=== PATIENT | male | born 1960 | race African-American/Black ===

== ENCOUNTER 2017-03-30 13:43 | Emergency (ER) | payer OTHER, SELFPAY ==
[2017-03-30 14:51] LABS: #Basophils 0.1 thou/uL (0.0-0.2); #Eosinphils 0.1 thou/uL (0.0-0.7); #Lymphocytes 2.8 thou/uL (1.20-3.40); #Monocytes 0.9 thou/uL (0.11-0.59); #Neutrophils 3.9 thou/uL (1.40-6.50); %Basophils 0.6 % (0.0-1.0); %Eosinophils 1.7 % (0.0-10.0); %Lymphocytes 36.1 % (21.0-51.0); %Monocytes 11.6 % (0.0-10.0); %Neutrophils 49.9 % (42.0-75.0); Hemoglobin 14.7 g/dL (14.0-18.0); Mean Corpuscular HGB CONC 31.4 g/dL (32.0-36.0); Mean Corpuscular Hemoglobin 31.2 pg (27.0-31.0); Mean Corpuscular Volume 99.2 fl (80.0-94.0); Mean Platelet Volume 6.9 fL (7.4-10.4); Platelet Count 196 thou/uL (130-400); RBC Distribution Width 12.9 % (11.5-14.5); Red Blood Cell (RBC) Count 4.72 mill/uL (4.70-6.10); White Blood Cell (WBC) Count 7.8 thou/uL (4.8-10.8)
[2017-03-30 14:58] LABS: Anion Gap 14 mmol/L (10-20); BUN (Urea Nitrogen) 10 mg/dL (8.4-25.7); Calc. Creatinine Clearance 0 mL/min (70-130); Calcium 10.2 mg/dL (7.8-10.44); Carbon Dioxide 24 mmol/L (22-29); Chloride 106 mmol/L (98-107); Estimated GFR-MDRD Greater than 90; Glucose 82 mg/dL (70-105); Potassium 4.2 mmol/L (3.5-5.1); Sodium 140 mmol/L (136-145)
[2017-03-30] MEDS ORDERED: cefTRIAXone\\ROCEPHIN 250 MG VIAL ONE (15:50)
[2017-03-30] MEDS ORDERED: Lidocaine 1% PF 5 ML VIAL ONE (15:51)
[2017-03-30 15:57] LABS: Bilirubin Negative (Negative); Blood, Urine Negative (Negative); Clarity CLEAR (Clear); Glucose, Urine (Dipstick) Negative (Negative); Leukocyte Negative (Negative); Nitrite Negative (Negative); Protein, Urine (Dipstick) Negative (Neg-Trace); pH, Urine 6.5 (5.0-9.0)
[2017-03-30] MEDS ORDERED: Ibuprofen 800 MG TAB ONE (16:08)
--- NOTE | 2017-03-30 16:12 | ULT ---
SCROTAL SONOGRAM WITH DUPLEX EVALUATION: HISTORY: Right scrotal pain and swelling. FINDINGS: The right testicle is 3.9 cm in length and the left is 4.7 cm. Each has a normal sonographic appeara nce and demonstrates good color and spectral Doppler flow. There is minimal fluid within the right s tin of the scrotum. Blood flow at the enlarged right epididymal tail is increased. There is a very small amount of left scrotal fluid. IMPRESSION: 1. No evidence of testicular mass or torsion. 2. Right epididymitis. 3. Small bilateral hydroceles. POS: [facility]
== END 2017-03-30 16:45 | disposition home or self-care (01) ==
LOC: ERS 13:43
DX: N45.1 Epididymitis (principal); Z87.891 Personal history of nicotine dependence
CPT/HCPCS: 36415; 76870; 80048; 81003; 85025; 93976; 96372; J0696; J2001

== ENCOUNTER 2023-01-09 11:06 | Inpatient (IN) | payer OTHER, SELFPAY ==
[2023-01-09 12:34] LABS: #Basophils 0.1 thou/uL (0.0-0.2); #Eosinphils 0.2 thou/uL (0.0-0.7); #Monocytes 0.7 thou/uL (0.11-0.59); #Neutrophils 8.8 thou/uL (1.40-6.50); %Basophils 0.5 % (0.0-1.0); %Eosinophils 1.5 % (0.0-10.0); %Lymphocytes 20.8 % (21.0-51.0); %Monocytes 5.7 % (0.0-10.0); %Neutrophils 69.2 % (42.0-75.0); Hematocrit 32.2 % (42.0-52.0); Hemoglobin 10.4 g/dL (14.0-18.0); Mean Corpuscular HGB CONC 32.3 g/dL (32.0-36.0); Mean Corpuscular Hemoglobin 30.5 pg (27.0-31.0); Mean Corpuscular Volume 94.4 fl (78.0-98.0); Mean Platelet Volume 8.5 fL (7.4-10.4); Platelet Count 530 10x3/uL (130-400); RBC Distribution Width 14.4 % (11.5-14.5); Red Blood Cell (RBC) Count 3.41 mill/uL (4.70-6.10); White Blood Cell (WBC) Count 12.7 10x3/uL (4.8-10.8)
[2023-01-09] MEDS ORDERED: Morphine 4 MG/ML VIAL ONE (12:50)
[2023-01-09] MEDS ORDERED: Ondansetron PF 4 MG/2 ML Vial ONE (12:50)
[2023-01-09 13:05] LABS: ALT (SGPT) 133 U/L (8-55); AST (SGOT) 47 U/L (5-34); Albumin 3.7 g/dL (3.4-4.8); Alkaline Phosphatase 136 U/L (40-110); Anion Gap 16 mmol/L (10-20); BUN (Urea Nitrogen) 10 mg/dL (8.4-25.7); Bilirubin, Total 0.2 mg/dL (0.2-1.2); Calc. Creatinine Clearance 0 mL/min (70-130); Calcium 10.3 mg/dL (7.8-10.44); Carbon Dioxide 24 mmol/L (23-31); Chloride 100 mmol/L (98-107); Estimated GFR 102; Globulin 5.1 g/dL (2.4-3.5); Glucose 90 mg/dL (80-115); Potassium 4.1 mmol/L (3.5-5.1); Protein, Total 8.8 g/dL (5.8-8.1); Sodium 136 mmol/L (136-145)
[2023-01-09] MEDS ORDERED: Morphine 2 MG/ML VIAL SLOW IVP PRN (13:13)
[2023-01-09] MEDS ORDERED: Ondansetron ODT 4 MG TAB PO PRN ×2 (13:13→14:00)
[2023-01-09] MEDS ORDERED: traMADol HCl 50 MG TAB PO PRN ×2 (13:13→22:45)
[2023-01-09] MEDS ORDERED: hydrALAZINE 20 MG/ML VIAL SLOW IVP PRN ×2 (13:13→14:00)
[2023-01-09] MEDS ORDERED: TETANUS, DIPHTHERIA TOX,ADULT (TDVAX) 0.5 ML VIAL IM ONE ×2 (13:13)
[2023-01-09] MEDS ORDERED: Ipratropium/Albuterol 3 ML NEB NEB PRN ×2 (13:13→14:00)
[2023-01-09] MEDS ORDERED: Sodium Chloride 0.9% 1,000 ML IV SCH (13:15)
[2023-01-09] MEDS ORDERED: Acetaminophen 325 MG TAB PO SCH (13:15)
[2023-01-09] MEDS ORDERED: PROPOFOL 200 MG/20 ML VIAL ONE (14:02)
[2023-01-09] MEDS ORDERED: Metoclopramide HCl 10 MG/2 ML VIAL ONE (14:02)
[2023-01-09] MEDS ORDERED: Succinylcholine 200 MG/10 ml SYRINGE FS ONE (14:02)
[2023-01-09] MEDS ORDERED: fentaNYL 50 mcg/mL 1 mL Vial ONE ×2 (15:15→15:30)
[2023-01-09] MEDS ORDERED: hydrALAZINE 20 MG/ML VIAL ONE (15:34)
[2023-01-09 16:21] VITALS: BMI 22.1
[2023-01-09] MEDS ORDERED: [UNRECOGNIZED DRUG - REMARK] IVPB PRN (16:39)
[2023-01-09] MEDS: Piperacillin/Tazobactam 3.375 GM in Sodium Chloride 0.9% 100 ML IVPB SCH (16:46)
[2023-01-09] MEDS: Morphine 2 MG/ML VIAL SLOW IVP PRN ×2 (16:46→21:33)
[2023-01-09] MEDS: Acetaminophen 325 MG TAB PO SCH ×2 (16:46→23:02)
[2023-01-09] MEDS: traMADol HCl 50 MG TAB PO PRN ×2 (16:47→22:11)
[2023-01-09] MEDS: Sodium Chloride 0.9% 1,000 ML IV SCH (16:47)
[2023-01-09] MEDS: VANCOMYCIN 1.25 GM/250 ML BAG 1.25 GM in Premix Bag 1 BAG IVPB SCH (18:44)
[2023-01-09] MEDS: Famotidine 20 MG TAB PO SCH (20:59)
[2023-01-09] MEDS ORDERED: Famotidine 20 MG TAB PO SCH (21:00)
[2023-01-09] MEDS: traMADol HCl 50 MG TAB PO SCH (23:03)
[2023-01-09] MEDS: Ketorolac Tromethamine 30 MG/ML VIAL IVP SCH (23:04)
[2023-01-10] MEDS: Sodium Chloride 0.9% 1,000 ML IV SCH ×4 (00:12→22:33)
[2023-01-10] MEDS: Piperacillin/Tazobactam 3.375 GM in Sodium Chloride 0.9% 100 ML IVPB SCH ×3 (00:13→17:19)
[2023-01-10] MEDS: Acetaminophen 325 MG TAB PO SCH ×4 (05:05→23:25)
[2023-01-10] MEDS: traMADol HCl 50 MG TAB PO SCH ×4 (05:05→23:24)
[2023-01-10] MEDS: Ketorolac Tromethamine 30 MG/ML VIAL IVP SCH ×4 (05:06→23:26)
[2023-01-10] MEDS: VANCOMYCIN 1.25 GM/250 ML BAG 1.25 GM in Premix Bag 1 BAG IVPB SCH ×2 (05:08→19:59)
[2023-01-10 05:41] LABS: #Basophils 0.1 thou/uL (0.0-0.2); #Eosinphils 0.3 thou/uL (0.0-0.7); #Monocytes 0.9 thou/uL (0.11-0.59); #Neutrophils 8.8 thou/uL (1.40-6.50); %Basophils 0.5 % (0.0-1.0); %Eosinophils 2.2 % (0.0-10.0); %Lymphocytes 19.1 % (21.0-51.0); %Monocytes 6.9 % (0.0-10.0); %Neutrophils 68.8 % (42.0-75.0); Hematocrit 31.3 % (42.0-52.0); Hemoglobin 10.2 g/dL (14.0-18.0); Mean Corpuscular HGB CONC 32.6 g/dL (32.0-36.0); Mean Corpuscular Volume 92.1 fl (78.0-98.0); Mean Platelet Volume 8.1 fL (7.4-10.4); Platelet Count 529 10x3/uL (130-400); RBC Distribution Width 14.4 % (11.5-14.5); White Blood Cell (WBC) Count 12.8 10x3/uL (4.8-10.8)
[2023-01-10 06:19] LABS: Anion Gap 14 mmol/L (10-20); BUN (Urea Nitrogen) 11 mg/dL (8.4-25.7); Calc. Creatinine Clearance 84 mL/min (70-130); Calcium 9.5 mg/dL (7.8-10.44); Carbon Dioxide 24 mmol/L (23-31); Chloride 101 mmol/L (98-107); Estimated GFR 99; Glucose 96 mg/dL (80-115); Sodium 135 mmol/L (136-145)
[2023-01-10] MEDS: Famotidine 20 MG TAB PO SCH ×2 (09:57→21:39)
[2023-01-10 18:09] LABS: Vancomycin, Trough 11.6 ug/mL
[2023-01-10] MEDS: Vancomycin 1 GM in Premix Bag 1 BAG IVPB SCH (22:32)
[2023-01-10] MEDS: Benzocaine/Menthol 1 LOZ LOZ PO PRN (23:27)
[2023-01-11] MEDS: Piperacillin/Tazobactam 3.375 GM in Sodium Chloride 0.9% 100 ML IVPB SCH ×4 (01:33→23:43)
[2023-01-11] MEDS: Morphine 2 MG/ML VIAL SLOW IVP PRN ×2 (04:12→11:05)
[2023-01-11] MEDS: Benzocaine/Menthol 1 LOZ LOZ PO PRN (04:15)
[2023-01-11] MEDS: traMADol HCl 50 MG TAB PO SCH ×4 (05:45→23:39)
[2023-01-11] MEDS: Ketorolac Tromethamine 30 MG/ML VIAL IVP SCH ×4 (05:45→23:40)
[2023-01-11] MEDS: Acetaminophen 325 MG TAB PO SCH ×4 (05:45→23:40)
[2023-01-11] MEDS: Famotidine 20 MG TAB PO SCH ×2 (08:44→22:06)
[2023-01-11] MEDS: Vancomycin 1 GM in Premix Bag 1 BAG IVPB SCH ×2 (08:44→22:07)
[2023-01-11] MEDS: Sodium Chloride 0.9% 1,000 ML IV SCH (13:24)
[2023-01-12] MEDS: Acetaminophen 325 MG TAB PO SCH ×4 (05:48→23:36)
[2023-01-12] MEDS: traMADol HCl 50 MG TAB PO SCH ×4 (05:49→23:38)
[2023-01-12] MEDS: Ketorolac Tromethamine 30 MG/ML VIAL IVP SCH ×4 (05:50→23:37)
[2023-01-12 07:19] LABS: #Basophils 0.1 thou/uL (0.0-0.2); #Eosinphils 0.4 thou/uL (0.0-0.7); #Monocytes 0.9 thou/uL (0.11-0.59); #Neutrophils 6.8 thou/uL (1.40-6.50); %Basophils 0.6 % (0.0-1.0); %Eosinophils 4.3 % (0.0-10.0); %Lymphocytes 18.1 % (21.0-51.0); %Monocytes 8.3 % (0.0-10.0); %Neutrophils 66.4 % (42.0-75.0); Hemoglobin 9.3 g/dL (14.0-18.0); Mean Corpuscular HGB CONC 32.1 g/dL (32.0-36.0); Mean Corpuscular Hemoglobin 30.5 pg (27.0-31.0); Mean Corpuscular Volume 95.1 fl (78.0-98.0); Mean Platelet Volume 8.3 fL (7.4-10.4); Platelet Count 486 10x3/uL (130-400); RBC Distribution Width 14.8 % (11.5-14.5); Red Blood Cell (RBC) Count 3.05 mill/uL (4.70-6.10); White Blood Cell (WBC) Count 10.3 10x3/uL (4.8-10.8)
[2023-01-12 07:51] LABS: Vancomycin, Trough 14.4 ug/mL
[2023-01-12 07:56] LABS: ALT (SGPT) 62 U/L (8-55); AST (SGOT) 23 U/L (5-34); Albumin 3.4 g/dL (3.4-4.8); Alkaline Phosphatase 110 U/L (40-110); Anion Gap 14 mmol/L (10-20); BUN (Urea Nitrogen) 17 mg/dL (8.4-25.7); Bilirubin, Total Less than 0.2 mg/dL (0.2-1.2); Calc. Creatinine Clearance 94 mL/min (70-130); Calcium 9.4 mg/dL (7.8-10.44); Carbon Dioxide 24 mmol/L (23-31); Chloride 102 mmol/L (98-107); Estimated GFR 103; Globulin 3.8 g/dL (2.4-3.5); Glucose 94 mg/dL (80-115); Potassium 4.3 mmol/L (3.5-5.1); Protein, Total 7.2 g/dL (5.8-8.1); Sodium 136 mmol/L (136-145)
[2023-01-12] MEDS: Piperacillin/Tazobactam 3.375 GM in Sodium Chloride 0.9% 100 ML IVPB SCH ×2 (09:28→18:26)
[2023-01-12] MEDS: VANCOMYCIN 1.25 GM/250 ML BAG 1.25 GM in Premix Bag 1 BAG IVPB SCH ×2 (09:28→20:35)
[2023-01-12] MEDS: Famotidine 20 MG TAB PO SCH ×2 (09:29→20:35)
[2023-01-12] MEDS: Vancomycin 1 GM in Premix Bag 1 BAG IVPB SCH (19:33)
[2023-01-13] MEDS: Piperacillin/Tazobactam 3.375 GM in Sodium Chloride 0.9% 100 ML IVPB SCH ×3 (02:36→17:21)
[2023-01-13] MEDS: Acetaminophen 325 MG TAB PO SCH ×3 (05:53→17:20)
[2023-01-13] MEDS: traMADol HCl 50 MG TAB PO SCH ×3 (05:53→17:20)
[2023-01-13] MEDS: Ketorolac Tromethamine 30 MG/ML VIAL IVP SCH ×3 (05:54→17:19)
[2023-01-13] MEDS: Famotidine 20 MG TAB PO SCH ×2 (09:02→20:15)
[2023-01-13] MEDS: VANCOMYCIN 1.25 GM/250 ML BAG 1.25 GM in Premix Bag 1 BAG IVPB SCH ×2 (09:02→20:16)
[2023-01-13] MEDS ORDERED: Cyclobenzaprine 10 MG TAB PO PRN (09:42)
[2023-01-13] MEDS: Morphine 2 MG/ML VIAL SLOW IVP PRN (09:44)
[2023-01-13 20:46] LABS: Vancomycin, Trough 15.9 ug/mL
[2023-01-14] MEDS: Ketorolac Tromethamine 30 MG/ML VIAL IVP SCH ×5 (00:01→23:59)
[2023-01-14] MEDS: Piperacillin/Tazobactam 3.375 GM in Sodium Chloride 0.9% 100 ML IVPB SCH (00:02)
[2023-01-14] MEDS: Acetaminophen 325 MG TAB PO SCH ×4 (06:06→17:08)
[2023-01-14] MEDS: traMADol HCl 50 MG TAB PO SCH ×4 (06:07→17:08)
[2023-01-14] MEDS: Linezolid 600 MG TAB PO SCH ×2 (09:21→21:12)
[2023-01-14] MEDS: Famotidine 20 MG TAB PO SCH ×2 (09:21→21:12)
[2023-01-14] MEDS: Lisinopril 20 MG TAB PO SCH (09:21)
[2023-01-14] MEDS: Morphine 2 MG/ML VIAL SLOW IVP PRN (09:32)
[2023-01-14] MEDS: Ciprofloxacin 500 MG TAB PO SCH (21:12)
[2023-01-15] MEDS: traMADol HCl 50 MG TAB PO SCH ×4 (06:50→17:48)
[2023-01-15] MEDS: Ciprofloxacin 500 MG TAB PO SCH ×2 (06:51→21:14)
[2023-01-15] MEDS: Acetaminophen 325 MG TAB PO SCH ×4 (06:51→17:47)
[2023-01-15] MEDS: Famotidine 20 MG TAB PO SCH ×2 (09:53→21:14)
[2023-01-15] MEDS: Linezolid 600 MG TAB PO SCH ×2 (09:53→21:14)
[2023-01-15] MEDS: Lisinopril 20 MG TAB PO SCH (09:53)
[2023-01-16] MEDS: Acetaminophen 325 MG TAB PO SCH ×5 (00:42→23:26)
[2023-01-16] MEDS: traMADol HCl 50 MG TAB PO SCH ×5 (00:42→23:27)
[2023-01-16] MEDS: Ciprofloxacin 500 MG TAB PO SCH ×2 (05:33→20:52)
[2023-01-16] MEDS: Famotidine 20 MG TAB PO SCH ×2 (10:02→20:52)
[2023-01-16] MEDS: Linezolid 600 MG TAB PO SCH ×2 (10:03→20:52)
[2023-01-16] MEDS: Lisinopril 20 MG TAB PO SCH (10:03)
[2023-01-16] MEDS: Morphine 2 MG/ML VIAL SLOW IVP PRN (10:45)
[2023-01-17] MEDS: Morphine 2 MG/ML VIAL SLOW IVP PRN ×2 (01:52→23:53)
[2023-01-17] MEDS: traMADol HCl 50 MG TAB PO SCH ×4 (06:14→23:53)
[2023-01-17] MEDS: Ciprofloxacin 500 MG TAB PO SCH ×2 (06:15→19:58)
[2023-01-17] MEDS: Acetaminophen 325 MG TAB PO SCH ×4 (06:15→23:52)
[2023-01-17] MEDS: Linezolid 600 MG TAB PO SCH ×2 (09:51→19:58)
[2023-01-17] MEDS: Famotidine 20 MG TAB PO SCH ×2 (09:51→19:58)
[2023-01-17] MEDS: Lisinopril 20 MG TAB PO SCH (09:51)
[2023-01-18 05:40] VITALS: BP 120/74; TEMP 98.4
[2023-01-18] MEDS: Ciprofloxacin 500 MG TAB PO SCH (05:45)
[2023-01-18] MEDS: traMADol HCl 50 MG TAB PO SCH (05:45)
[2023-01-18] MEDS: Acetaminophen 325 MG TAB PO SCH (05:45)
[2023-01-18] MEDS: Lisinopril 20 MG TAB PO SCH (09:10)
[2023-01-18] MEDS: Famotidine 20 MG TAB PO SCH (09:10)
[2023-01-18] MEDS: Linezolid 600 MG TAB PO SCH (09:10)
== END 2023-01-18 13:04 | disposition home or self-care (01) | DRG 857 ==
LOC: ERS 11:06 → SDC 13:06 → SURG A 13:13
PROVIDERS: ADMIT Orthopaedic Surgery; ATTEND Orthopaedic Surgery
PROC: 0QDG0ZZ Extraction of Right Tibia, Open Approach (ICD-10-PCS; principal; 2023-01-09)
DX: T81.49XA Infection following a procedure, other surgical site, initial encounter (principal); T81.31XA Disruption of external operation (surgical) wound, not elsewhere classified, initial encounter; F17.210 Nicotine dependence, cigarettes, uncomplicated; I10 Essential (primary) hypertension; D72.829 Elevated white blood cell count, unspecified; Z79.899 Other long term (current) drug therapy; Z90.49 Acquired absence of other specified parts of digestive tract; Z98.890 Other specified postprocedural states
CPT/HCPCS: 36415; 80048; 80053; 80202; 82565; 83605; 85025; 87070; 87077; 87186; 87205; 93005; 93010; 96374; 96375; 97139; J0360; J1885; J2270; J2272; J2405; J2543; J2704; J2765; J3010; J3370; J3370-JW; J3490; J7050

== ENCOUNTER 2023-02-23 13:07 | Inpatient (IN) | payer OTHER ==
[~2023-02-23 13:07] MED LIST: Iopamidol-370 76% 500 ML MDV (1 ML CHARGE) ONE
[2023-02-23] MEDS ORDERED: Morphine 4 MG/ML VIAL ONE (14:00)
[2023-02-23] MEDS ORDERED: Ondansetron PF 4 MG/2 ML Vial ONE (14:00)
[2023-02-23] MEDS ORDERED: Cefepime 2 GM VIAL ONE (14:01)
[2023-02-23] MEDS ORDERED: Vancomycin HCl 500 MG VIAL ONE (14:01)
[2023-02-23] MEDS ORDERED: Sodium Chloride 0.9% 100 ML ONE (14:06)
[2023-02-23 14:08] LABS: #Basophils 0.1 thou/uL (0.0-0.2); #Eosinphils 0.1 thou/uL (0.0-0.7); #Monocytes 0.5 thou/uL (0.11-0.59); #Neutrophils 3.5 thou/uL (1.40-6.50); %Basophils 0.8 % (0.0-1.0); %Eosinophils 0.8 % (0.0-10.0); %Lymphocytes 35.2 % (21.0-51.0); %Monocytes 8.2 % (0.0-10.0); %Neutrophils 54.8 % (42.0-75.0); Hemoglobin 12.3 g/dL (14.0-18.0); Mean Corpuscular HGB CONC 32.4 g/dL (32.0-36.0); Mean Corpuscular Hemoglobin 30.8 pg (27.0-31.0); Platelet Count 276 10x3/uL (130-400); RBC Distribution Width 16.6 % (11.5-14.5); White Blood Cell (WBC) Count 6.5 10x3/uL (4.8-10.8)
[2023-02-23 14:34] LABS: Troponin I Less than 0.010 ng/mL (< 0.028)
[2023-02-23 14:36] LABS: ALT (SGPT) 11 U/L (8-55); AST (SGOT) 14 U/L (5-34); Albumin 4.5 g/dL (3.4-4.8); Alkaline Phosphatase 83 U/L (40-110); Anion Gap 14 mmol/L (10-20); BUN (Urea Nitrogen) 12 mg/dL (8.4-25.7); Bilirubin, Total 0.3 mg/dL (0.2-1.2); Calc. Creatinine Clearance 0 mL/min (70-130); Calcium 10.5 mg/dL (7.8-10.44); Carbon Dioxide 27 mmol/L (23-31); Chloride 103 mmol/L (98-107); Estimated GFR 84; Globulin 4.4 g/dL (2.4-3.5); Glucose 89 mg/dL (80-115); Potassium 3.9 mmol/L (3.5-5.1); Protein, Total 8.9 g/dL (5.8-8.1); Sodium 140 mmol/L (136-145)
[2023-02-23] MEDS ORDERED: Ipratropium/Albuterol 3 ML NEB NEB PRN (17:05)
[2023-02-23] MEDS ORDERED: Ondansetron PF 4 MG/2 ML Vial IVP PRN (17:05)
[2023-02-23] MEDS ORDERED: TETANUS, DIPHTHERIA TOX,ADULT (TDVAX) 0.5 ML VIAL IM ONE (17:05)
[2023-02-23 17:37] LABS: Lactic Acid 1.9 mmol/L (0.5-2.2)
[2023-02-23] MEDS: Morphine 2 MG/ML VIAL SLOW IVP PRN (21:05)
[2023-02-23] MEDS: Sodium Chloride 0.9% 1,000 ML IV SCH (21:05)
[2023-02-23] MEDS: Famotidine/PF 20 mg/2ml Vial SLOW IVP SCH (21:05)
[2023-02-23] MEDS: Acetaminophen 500 MG TAB PO SCH ×2 (21:24→23:10)
[2023-02-23 22:28] VITALS: BMI 26.6
[2023-02-23] MEDS: traMADol HCl 50 MG TAB PO SCH (23:10)
[2023-02-24] MEDS: Acetaminophen 500 MG TAB PO SCH ×4 (05:08→23:03)
[2023-02-24] MEDS: Sodium Chloride 0.9% 1,000 ML IV SCH ×3 (05:08→17:00)
[2023-02-24] MEDS: traMADol HCl 50 MG TAB PO SCH ×4 (05:08→23:03)
[2023-02-24 05:18] LABS: #Eosinphils 0.1 thou/uL (0.0-0.7); #Monocytes 0.8 thou/uL (0.11-0.59); #Neutrophils 4.1 thou/uL (1.40-6.50); %Basophils 0.6 % (0.0-1.0); %Lymphocytes 27.7 % (21.0-51.0); %Monocytes 10.9 % (0.0-10.0); %Neutrophils 58.4 % (42.0-75.0); Hematocrit 33.8 % (42.0-52.0); Hemoglobin 10.6 g/dL (14.0-18.0); Mean Corpuscular HGB CONC 31.4 g/dL (32.0-36.0); Mean Corpuscular Hemoglobin 30.9 pg (27.0-31.0); Mean Platelet Volume 9.4 fL (7.4-10.4); Platelet Count 227 10x3/uL (130-400); RBC Distribution Width 16.9 % (11.5-14.5); Red Blood Cell (RBC) Count 3.43 mill/uL (4.70-6.10)
[2023-02-24 05:34] LABS: Hemoglobin A1c 5.5 % (4.0-6.0)
[2023-02-24 05:35] LABS: Mean Corpuscular Volume 98.5 fl (78.0-98.0)
[2023-02-24 05:40] LABS: PTT 28.1 sec (22.9-36.1); Prothrombin Time 13.3 sec (12.0-14.7)
[2023-02-24 05:42] LABS: Anion Gap 14 mmol/L (10-20); BUN (Urea Nitrogen) 19 mg/dL (8.4-25.7); Calc. Creatinine Clearance 99 mL/min (70-130); Carbon Dioxide 24 mmol/L (23-31); Chloride 107 mmol/L (98-107); Estimated GFR 100; Glucose 103 mg/dL (80-115); Potassium 4.6 mmol/L (3.5-5.1); Sodium 140 mmol/L (136-145)
[2023-02-24] MEDS: Famotidine/PF 20 mg/2ml Vial SLOW IVP SCH ×2 (08:46→20:25)
[2023-02-24] MEDS: Senokot S 8.6-50 MG TAB PO SCH ×2 (08:46→20:25)
[2023-02-24] MEDS: Polyethylene Glycol 3350 17 GM Packet PO SCH (08:46)
[2023-02-24] MEDS: Linezolid 600 MG TAB PO SCH ×2 (10:16→20:24)
[2023-02-24] MEDS: Morphine 2 MG/ML VIAL SLOW IVP PRN (10:57)
[2023-02-24] MEDS: Ciprofloxacin 500 MG TAB PO SCH (20:24)
[2023-02-25] MEDS: Sodium Chloride 0.9% 1,000 ML IV SCH ×2 (02:33→11:02)
[2023-02-25] MEDS: Acetaminophen 500 MG TAB PO SCH ×4 (05:36→23:53)
[2023-02-25] MEDS: traMADol HCl 50 MG TAB PO SCH ×4 (05:37→23:53)
[2023-02-25] MEDS: Ciprofloxacin 500 MG TAB PO SCH ×2 (05:37→20:06)
[2023-02-25] MEDS: Lisinopril 20 MG TAB PO SCH (08:06)
[2023-02-25] MEDS: Linezolid 600 MG TAB PO SCH (08:06)
[2023-02-25] MEDS: Senokot S 8.6-50 MG TAB PO SCH ×3 (08:07→20:06)
[2023-02-25] MEDS: Polyethylene Glycol 3350 17 GM Packet PO SCH ×2 (08:07→09:37)
[2023-02-25 13:17] LABS: HIV (1/2) Antibody/Antigen Non-Reactive (NonReactive); HIV 1/2 INDEX 0.51 S/CO (<1.00)
[2023-02-25] MEDS: AMOXicillin 250 MG CAP PO SCH ×2 (15:57→22:06)
[2023-02-25] MEDS: Famotidine 20 MG TAB PO SCH (20:06)
[2023-02-26] MEDS: Morphine 2 MG/ML VIAL SLOW IVP PRN (03:43)
[2023-02-26] MEDS: Acetaminophen 500 MG TAB PO SCH ×4 (06:44→23:38)
[2023-02-26] MEDS: Ciprofloxacin 500 MG TAB PO SCH ×2 (06:44→20:44)
[2023-02-26] MEDS: traMADol HCl 50 MG TAB PO SCH ×4 (06:44→23:39)
[2023-02-26] MEDS: Lisinopril 20 MG TAB PO SCH (08:10)
[2023-02-26] MEDS: Famotidine 20 MG TAB PO SCH ×2 (08:10→20:44)
[2023-02-26] MEDS: AMOXicillin 250 MG CAP PO SCH ×3 (08:10→20:44)
[2023-02-26 12:33] LABS: Syphilis Antibody Nonreactive (Nonreactive); Syphilis Antibody Index 0.99 S/CO (<1.00 Non-Reactive)
[2023-02-26] MEDS: Senokot S 8.6-50 MG TAB PO SCH (20:45)
[2023-02-27] MEDS: Acetaminophen 500 MG TAB PO SCH ×4 (06:06→23:24)
[2023-02-27] MEDS: traMADol HCl 50 MG TAB PO SCH ×4 (06:06→23:24)
[2023-02-27] MEDS: Ciprofloxacin 500 MG TAB PO SCH (06:06)
[2023-02-27 06:53] LABS: #Eosinphils 0.1 thou/uL (0.0-0.7); #Monocytes 0.6 thou/uL (0.11-0.59); #Neutrophils 2.5 thou/uL (1.40-6.50); %Basophils 0.6 % (0.0-1.0); %Eosinophils 2.6 % (0.0-10.0); %Lymphocytes 34.4 % (21.0-51.0); %Monocytes 12.3 % (0.0-10.0); %Neutrophils 49.9 % (42.0-75.0); Hematocrit 39.8 % (42.0-52.0); Hemoglobin 12.4 g/dL (14.0-18.0); Mean Corpuscular HGB CONC 31.2 g/dL (32.0-36.0); Mean Corpuscular Volume 96.4 fl (78.0-98.0); Mean Platelet Volume 8.9 fL (7.4-10.4); Platelet Count 278 10x3/uL (130-400); RBC Distribution Width 16.2 % (11.5-14.5); Red Blood Cell (RBC) Count 4.13 mill/uL (4.70-6.10); White Blood Cell (WBC) Count 5.1 10x3/uL (4.8-10.8)
[2023-02-27] MEDS: AMOXicillin 250 MG CAP PO SCH ×3 (09:53→23:23)
[2023-02-27] MEDS: Lisinopril 20 MG TAB PO SCH (09:54)
[2023-02-27] MEDS: Famotidine 20 MG TAB PO SCH ×2 (09:54→21:00)
[2023-02-27] MEDS: Polyethylene Glycol 3350 17 GM Packet PO SCH (09:55)
[2023-02-27] MEDS: Senokot S 8.6-50 MG TAB PO SCH ×2 (09:55→21:00)
[2023-02-27] MEDS ORDERED: Meropenem 1 GM in Sodium Chloride 0.9% 100 ML IVPB SCH (11:30)
[2023-02-27] MEDS: Meropenem 1 GM in Sodium Chloride 0.9% 100 ML IVPB SCH (20:59)
[2023-02-28] MEDS: Meropenem 1 GM in Sodium Chloride 0.9% 100 ML IVPB SCH ×3 (05:01→20:56)
[2023-02-28] MEDS: traMADol HCl 50 MG TAB PO SCH ×3 (05:02→18:04)
[2023-02-28] MEDS: Acetaminophen 500 MG TAB PO SCH (05:05)
[2023-02-28] MEDS ORDERED: HYDROcodone/Acetaminophen 7.5/325 mg Tablet PO PRN (08:17)
[2023-02-28] MEDS ORDERED: Morphine 4 MG/ML VIAL SLOW IVP PRN (08:18)
[2023-02-28] MEDS: Polyethylene Glycol 3350 17 GM Packet PO SCH (08:56)
[2023-02-28] MEDS: Senokot S 8.6-50 MG TAB PO SCH ×2 (08:56→20:58)
[2023-02-28] MEDS: AMOXicillin 250 MG CAP PO SCH ×3 (09:07→20:56)
[2023-02-28] MEDS: HYDROcodone/Acetaminophen 7.5/325 mg Tablet PO PRN ×3 (09:07→20:56)
[2023-02-28] MEDS: Lisinopril 20 MG TAB PO SCH (09:07)
[2023-02-28] MEDS: Famotidine 20 MG TAB PO SCH ×2 (09:07→20:56)
[2023-03-01] MEDS: traMADol HCl 50 MG TAB PO SCH ×4 (02:54→17:43)
[2023-03-01] MEDS: HYDROcodone/Acetaminophen 7.5/325 mg Tablet PO PRN (03:26)
[2023-03-01] MEDS: Meropenem 1 GM in Sodium Chloride 0.9% 100 ML IVPB SCH ×3 (03:27→20:46)
[2023-03-01] MEDS: Famotidine 20 MG TAB PO SCH ×2 (08:58→20:47)
[2023-03-01] MEDS: Senokot S 8.6-50 MG TAB PO SCH ×2 (08:58→20:48)
[2023-03-01] MEDS: Polyethylene Glycol 3350 17 GM Packet PO SCH (08:59)
[2023-03-01] MEDS: Lisinopril 20 MG TAB PO SCH (09:00)
[2023-03-01] MEDS: Lidocaine 4% Topical Sol 50 ML BOT TOP SCH (15:20)
[2023-03-02] MEDS: traMADol HCl 50 MG TAB PO SCH ×5 (00:12→23:44)
[2023-03-02] MEDS: Meropenem 1 GM in Sodium Chloride 0.9% 100 ML IVPB SCH ×3 (04:57→20:49)
[2023-03-02] MEDS: Lisinopril 20 MG TAB PO SCH (09:20)
[2023-03-02] MEDS: Famotidine 20 MG TAB PO SCH ×2 (09:21→20:53)
[2023-03-02] MEDS: Polyethylene Glycol 3350 17 GM Packet PO SCH (09:22)
[2023-03-02] MEDS: Senokot S 8.6-50 MG TAB PO SCH ×2 (09:23→20:54)
[2023-03-02] MEDS: HYDROcodone/Acetaminophen 7.5/325 mg Tablet PO PRN ×3 (10:51→20:51)
[2023-03-03] MEDS: Meropenem 1 GM in Sodium Chloride 0.9% 100 ML IVPB SCH ×3 (05:23→20:37)
[2023-03-03] MEDS: traMADol HCl 50 MG TAB PO SCH ×3 (05:23→18:12)
[2023-03-03] MEDS: HYDROcodone/Acetaminophen 7.5/325 mg Tablet PO PRN (09:47)
[2023-03-03] MEDS: Polyethylene Glycol 3350 17 GM Packet PO SCH (09:48)
[2023-03-03] MEDS: Lisinopril 20 MG TAB PO SCH (09:48)
[2023-03-03] MEDS: Famotidine 20 MG TAB PO SCH ×2 (09:48→20:38)
[2023-03-03] MEDS: Senokot S 8.6-50 MG TAB PO SCH ×2 (09:48→20:38)
[2023-03-03] MEDS: Lidocaine 4% Topical Sol 50 ML BOT TOP SCH (09:48)
[2023-03-04] MEDS: traMADol HCl 50 MG TAB PO SCH ×5 (00:11→23:31)
[2023-03-04] MEDS: Meropenem 1 GM in Sodium Chloride 0.9% 100 ML IVPB SCH ×3 (04:47→19:57)
[2023-03-04] MEDS: Famotidine 20 MG TAB PO SCH ×2 (10:05→19:57)
[2023-03-04] MEDS: Lisinopril 20 MG TAB PO SCH (10:05)
[2023-03-04] MEDS: HYDROcodone/Acetaminophen 7.5/325 mg Tablet PO PRN (10:06)
[2023-03-04] MEDS: Polyethylene Glycol 3350 17 GM Packet PO SCH (10:08)
[2023-03-04] MEDS: Senokot S 8.6-50 MG TAB PO SCH ×2 (10:08→19:58)
[2023-03-05] MEDS: Meropenem 1 GM in Sodium Chloride 0.9% 100 ML IVPB SCH ×3 (04:47→20:41)
[2023-03-05] MEDS: traMADol HCl 50 MG TAB PO SCH ×4 (06:45→23:50)
[2023-03-05] MEDS: HYDROcodone/Acetaminophen 7.5/325 mg Tablet PO PRN ×2 (09:50→18:00)
[2023-03-05] MEDS: Lisinopril 20 MG TAB PO SCH (09:50)
[2023-03-05] MEDS: Famotidine 20 MG TAB PO SCH ×2 (09:50→20:42)
[2023-03-05] MEDS: Senokot S 8.6-50 MG TAB PO SCH ×2 (09:51→20:43)
[2023-03-05] MEDS: Polyethylene Glycol 3350 17 GM Packet PO SCH (09:51)
[2023-03-06] MEDS: HYDROcodone/Acetaminophen 7.5/325 mg Tablet PO PRN ×3 (05:09→19:27)
[2023-03-06] MEDS: Meropenem 1 GM in Sodium Chloride 0.9% 100 ML IVPB SCH ×3 (05:09→19:27)
[2023-03-06] MEDS: traMADol HCl 50 MG TAB PO SCH ×4 (07:04→23:47)
[2023-03-06] MEDS: Lisinopril 20 MG TAB PO SCH (09:47)
[2023-03-06] MEDS: Famotidine 20 MG TAB PO SCH ×2 (09:47→19:26)
[2023-03-06] MEDS: Polyethylene Glycol 3350 17 GM Packet PO SCH (12:27)
[2023-03-06] MEDS: Senokot S 8.6-50 MG TAB PO SCH ×2 (12:27→19:32)
[2023-03-06] MEDS: Lidocaine 4% Topical Sol 50 ML BOT TOP SCH (17:45)
[2023-03-07] MEDS: Meropenem 1 GM in Sodium Chloride 0.9% 100 ML IVPB SCH ×3 (04:48→20:28)
[2023-03-07] MEDS: traMADol HCl 50 MG TAB PO SCH ×3 (04:51→18:13)
[2023-03-07] MEDS: Polyethylene Glycol 3350 17 GM Packet PO SCH (07:38)
[2023-03-07] MEDS: Famotidine 20 MG TAB PO SCH ×2 (07:38→20:27)
[2023-03-07] MEDS: Senokot S 8.6-50 MG TAB PO SCH ×2 (07:38→20:29)
[2023-03-07] MEDS: Lisinopril 20 MG TAB PO SCH (07:44)
[2023-03-07] MEDS ORDERED: fentaNYL 50 mcg/mL 1 mL Vial ONE ×3 (13:17→16:32)
[2023-03-07] MEDS ORDERED: Ropivacaine 0.5% HCl/PF (150 MG/30 ML VIAL) ONE (13:18)
[2023-03-07] MEDS ORDERED: Lidocaine 2% PF 5 ML VIAL ONE (13:18)
[2023-03-07] MEDS ORDERED: Midazolam HCl 2 mg/2 ml Vial ONE ×2 (13:18→14:22)
[2023-03-07] MEDS ORDERED: PROPOFOL 20 ML ONE (13:42)
[2023-03-07] MEDS ORDERED: Lidocaine 1% PF 5 ML VIAL ONE ×2 (13:44→14:00)
[2023-03-07] MEDS ORDERED: Sodium Chloride 0.9% 100 ML ONE (13:53)
[2023-03-07] MEDS ORDERED: CEFAZOLIN 2 GM VIAL ONE (13:53)
[2023-03-07] MEDS ORDERED: PROPOFOL 200 MG/20 ML VIAL ONE (14:00)
[2023-03-07] MEDS ORDERED: Ondansetron PF 4 MG/2 ML Vial ONE ×2 (14:00→14:43)
[2023-03-07] MEDS ORDERED: ePHEDrine Sulfate 50 MG/10 ML VIAL ONE ×2 (14:00→14:49)
[2023-03-07] MEDS ORDERED: fentaNYL PF 100 MCG/2 ML SYRINGE ONE (14:22)
[2023-03-07] MEDS ORDERED: Ondansetron HCl/PF 4 MG/2 ML Vial IVP PRN (16:17)
[2023-03-07] MEDS ORDERED: Promethazine HCl 25 MG/ML VIAL IM PRN (16:17)
[2023-03-07] MEDS: HYDROcodone/Acetaminophen 7.5/325 mg Tablet PO PRN (18:12)
[2023-03-08] MEDS: traMADol HCl 50 MG TAB PO SCH ×6 (01:54→23:23)
[2023-03-08] MEDS: HYDROcodone/Acetaminophen 7.5/325 mg Tablet PO PRN ×4 (02:58→19:34)
[2023-03-08] MEDS: Meropenem 1 GM in Sodium Chloride 0.9% 100 ML IVPB SCH ×3 (06:23→20:38)
[2023-03-08 07:03] LABS: Hemoglobin 11.6 g/dL (14.0-18.0); Platelet Count 231 10x3/uL (130-400)
[2023-03-08] MEDS: Famotidine 20 MG TAB PO SCH ×2 (08:09→20:38)
[2023-03-08] MEDS: Lisinopril 20 MG TAB PO SCH (08:09)
[2023-03-08] MEDS: Gabapentin 300 MG CAP PO SCH ×3 (08:09→20:37)
[2023-03-08] MEDS: Polyethylene Glycol 3350 17 GM Packet PO SCH (08:10)
[2023-03-08] MEDS: Senokot S 8.6-50 MG TAB PO SCH ×2 (08:10→20:33)
[2023-03-08] MEDS: Lidocaine 4% Topical Sol 50 ML BOT TOP SCH (08:11)
[2023-03-08] MEDS: Ketorolac Tromethamine 30 MG/ML VIAL IVP SCH ×3 (11:02→23:23)
[2023-03-09] MEDS: Meropenem 1 GM in Sodium Chloride 0.9% 100 ML IVPB SCH ×3 (05:02→20:27)
[2023-03-09] MEDS: traMADol HCl 50 MG TAB PO SCH ×3 (05:02→17:21)
[2023-03-09] MEDS: Ketorolac Tromethamine 30 MG/ML VIAL IVP SCH ×3 (05:03→17:21)
[2023-03-09] MEDS: Famotidine 20 MG TAB PO SCH ×2 (08:46→20:26)
[2023-03-09] MEDS: Gabapentin 300 MG CAP PO SCH ×3 (08:46→20:26)
[2023-03-09] MEDS: HYDROcodone/Acetaminophen 7.5/325 mg Tablet PO PRN ×2 (08:46→20:35)
[2023-03-09] MEDS: Lisinopril 20 MG TAB PO SCH (08:47)
[2023-03-09] MEDS: Senokot S 8.6-50 MG TAB PO SCH ×2 (08:48→20:27)
[2023-03-09] MEDS: Polyethylene Glycol 3350 17 GM Packet PO SCH (08:48)
[2023-03-10] MEDS: traMADol HCl 50 MG TAB PO SCH ×5 (00:11→23:36)
[2023-03-10] MEDS: Ketorolac Tromethamine 30 MG/ML VIAL IVP SCH ×3 (00:12→11:36)
[2023-03-10] MEDS: Meropenem 1 GM in Sodium Chloride 0.9% 100 ML IVPB SCH (04:55)
[2023-03-10] MEDS: Cephalexin 250 MG CAP PO SCH ×3 (08:31→21:05)
[2023-03-10] MEDS: Gabapentin 300 MG CAP PO SCH ×3 (08:31→21:05)
[2023-03-10] MEDS: Famotidine 20 MG TAB PO SCH ×2 (08:31→21:05)
[2023-03-10] MEDS: Lidocaine 4% Topical Sol 50 ML BOT TOP SCH (08:33)
[2023-03-10] MEDS: Lisinopril 20 MG TAB PO SCH (08:33)
[2023-03-10] MEDS: Polyethylene Glycol 3350 17 GM Packet PO SCH (08:34)
[2023-03-10] MEDS: Senokot S 8.6-50 MG TAB PO SCH ×2 (08:34→21:06)
[2023-03-10] MEDS: HYDROcodone/Acetaminophen 7.5/325 mg Tablet PO PRN (21:06)
[2023-03-11] MEDS: Cephalexin 250 MG CAP PO SCH ×4 (02:25→19:48)
[2023-03-11] MEDS: traMADol HCl 50 MG TAB PO SCH ×3 (06:02→19:02)
[2023-03-11] MEDS: Famotidine 20 MG TAB PO SCH ×2 (09:39→19:47)
[2023-03-11] MEDS: Gabapentin 300 MG CAP PO SCH ×3 (09:39→19:48)
[2023-03-11] MEDS: Senokot S 8.6-50 MG TAB PO SCH ×2 (09:40→19:48)
[2023-03-11] MEDS: Polyethylene Glycol 3350 17 GM Packet PO SCH (09:40)
[2023-03-11] MEDS: Lisinopril 20 MG TAB PO SCH (09:40)
[2023-03-11] MEDS: HYDROcodone/Acetaminophen 7.5/325 mg Tablet PO PRN (09:42)
[2023-03-12] MEDS: Cephalexin 250 MG CAP PO SCH ×4 (00:59→20:21)
[2023-03-12] MEDS: traMADol HCl 50 MG TAB PO SCH ×4 (00:59→18:26)
[2023-03-12] MEDS: Famotidine 20 MG TAB PO SCH ×2 (08:38→20:20)
[2023-03-12] MEDS: Lisinopril 20 MG TAB PO SCH (08:38)
[2023-03-12] MEDS: Gabapentin 300 MG CAP PO SCH ×3 (08:39→20:21)
[2023-03-12] MEDS: Senokot S 8.6-50 MG TAB PO SCH ×2 (08:40→20:21)
[2023-03-12] MEDS: Polyethylene Glycol 3350 17 GM Packet PO SCH (08:40)
[2023-03-12] MEDS: HYDROcodone/Acetaminophen 7.5/325 mg Tablet PO PRN (18:21)
[2023-03-13] MEDS: traMADol HCl 50 MG TAB PO SCH ×3 (01:00→11:15)
[2023-03-13] MEDS: HYDROcodone/Acetaminophen 7.5/325 mg Tablet PO PRN ×3 (01:01→11:49)
[2023-03-13] MEDS: Cephalexin 250 MG CAP PO SCH ×3 (01:04→11:49)
[2023-03-13] MEDS: Gabapentin 300 MG CAP PO SCH (09:16)
[2023-03-13] MEDS: Famotidine 20 MG TAB PO SCH (09:16)
[2023-03-13] MEDS: Lisinopril 20 MG TAB PO SCH (09:16)
[2023-03-13] MEDS: Senokot S 8.6-50 MG TAB PO SCH (09:17)
[2023-03-13] MEDS: Lidocaine 4% Topical Sol 50 ML BOT TOP SCH (09:17)
[2023-03-13] MEDS: Polyethylene Glycol 3350 17 GM Packet PO SCH (09:17)
[2023-03-13 11:49] VITALS: BP 136/83; TEMP 98.5
== END 2023-03-13 13:03 | DRG 475 ==
LOC: ERS 13:07 → SURG A 16:02 → OBSVTOIN 02-24 10:45
PROVIDERS: ADMIT Orthopaedic Surgery; ATTEND Orthopaedic Surgery
PROC: 02HV33Z Insertion of Infusion Device into Superior Vena Cava, Percutaneous Approach (ICD-10-PCS; principal; 2023-02-28)
PROC: B5181ZA Fluoroscopy of Superior Vena Cava using Low Osmolar Contrast, Guidance (ICD-10-PCS; 2023-02-28)
PROC: 0Y6H0Z3 Detachment at Right Lower Leg, Low, Open Approach (ICD-10-PCS; 2023-03-07)
PROC: 01QH0ZZ Repair Peroneal Nerve, Open Approach (ICD-10-PCS; 2023-03-07)
DX: T84.69XA Infection and inflammatory reaction due to internal fixation device of other site, initial encounter (principal); T81.31XA Disruption of external operation (surgical) wound, not elsewhere classified, initial encounter; S94.21XA Injury of deep peroneal nerve at ankle and foot level, right leg, initial encounter; Z88.6 Allergy status to analgesic agent; Z98.890 Other specified postprocedural states; I10 Essential (primary) hypertension; E11.9 Type 2 diabetes mellitus without complications; Z90.49 Acquired absence of other specified parts of digestive tract; Z79.899 Other long term (current) drug therapy; K21.9 Gastro-esophageal reflux disease without esophagitis; M21.371 Foot drop, right foot; Y83.8 Other surgical procedures as the cause of abnormal reaction of the patient, or of later complication, without mention of misadventure at the time of the procedure; B96.5 Pseudomonas (aeruginosa) (mallei) (pseudomallei) as the cause of diseases classified elsewhere
CPT/HCPCS: 36415; 36569; 80048; 80053; 82565; 83036; 83605; 84484; 85014; 85018; 85025; 85049; 85610; 85730; 86140; 86780; 87040; 87070; 87077; 87186; 87205; 87389; 88307; 88311; 93005; 93923; 96365; 96366; 96367; 96375; 96376; 97139; C1751; G0378; J0692; J1885; J2001; J2185; J2250; J2270; J2272; J2405; J2704; J2795; J3010; J3370; J3490; J7050; Q9967; S0028